=== PATIENT | female | born 1975 | race Caucasian/White ===

== ENCOUNTER 2020-09-28 07:38 | Outpatient (CLI) | payer BC | END 2020-09-28 07:39 | disposition home or self-care (01) | LOC: CSHULT 07:38 | PROVIDERS: ATTEND Family Medicine | DX: R22.9 Localized swelling, mass and lump, unspecified (principal) | CPT/HCPCS: 76999 ==

== ENCOUNTER 2024-05-08 09:14 | Outpatient (CLI) | payer BC | END 2024-05-08 09:15 | disposition home or self-care (01) | LOC: CSHMAMMO 09:14 | PROVIDERS: ATTEND Obstetrics & Gynecology | DX: R92.8 Other abnormal and inconclusive findings on diagnostic imaging of breast (principal) | CPT/HCPCS: G0279 ==